=== PATIENT | male | born 1970 | race Caucasian/White ===

== ENCOUNTER 2021-06-19 17:27 | Emergency (ER) | payer OTHER ==
[~2021-06-19] VITALS: Ht 170.2 cm; Wt 104.0 kg
[2021-06-19] MEDS ORDERED: CHLORDIAZEPOXIDE 25MG CAPSULE PO ONE (18:45)
[2021-06-19] MEDS ORDERED: SODIUM CHLORIDE 0.9% 1,000 ML IV ONE (18:45)
[2021-06-19] MEDS ORDERED: CHLORDIAZEPOXIDE 5 MG CAPSULE PO NR (19:44)
[2021-06-19 23:05] LABS: BASOPHILS % 0.6 % (0.0-2.0); EOSINOPHILS % 2.8 % (0.0-5.0); HEMOGLOBIN. 13.3 g/dL (14.0-18.0); LYMPHOCYTES % 38.1 % (20.0-50.0); MEAN CORPUSCULAR VOLUME 90.9 fL (80.0-94.0); MEAN PLATELET VOLUME 6.7 fl (7.4-10.4); MONOCYTES % 11.1 % (2.0-8.0); NEUTROPHILS % 47.4 % (40.0-76.0); PLATELET 159 x1000/uL (130-400); RED BLOOD CELL COUNT 4.29 mill/uL (4.7-6.1); RED CELL DISTRIBUTION WIDTH 14.4 % (11.6-14.6)
[2021-06-19 23:12] LABS: CLARITY URINE CLEAR (CLEAR); COLOR URINE YELLOW (YELLOW); KETONES URINE TRACE (NEGATIVE); LEUKOCYTE ESTERASE URINE NEGATIVE (NEGATIVE); NITRITE URINE NEGATIVE (NEGATIVE); OCCULT BLOOD URINE NEGATIVE (NEGATIVE); PH URINE 5.5 (4.5-8.0); PROTEIN URINE NEGATIVE (NEGATIVE); SPECIFIC GRAVITY URINE 1.017 (1.005-1.030)
[2021-06-19 23:21] LABS: CHLORIDE 105 mEq/L (98-107); ETHANOL BLOOD 105 mg/dL
[2021-06-19] MEDS ORDERED: DIAZEPAM 5 MG/ML 2ML CPJ IV ONE (23:30)
[2021-06-20 00:41] LABS: *AMPHETAMINES SCREEN URINE NEGATIVE (NEGATIVE); *BARBITURATES SCREEN URINE NEGATIVE (NEGATIVE); *BENZODIAZEPINES SCREEN URINE PRESUMTIVE POSITIVE (NEGATIVE); *COCAINE SCREEN URINE NEGATIVE (NEGATIVE); CANNABINOID URINE SCREEN NEGATIVE (NEGATIVE); METHADONE URINE SCREEN NEGATIVE (NEGATIVE); OPIATES URINE SCREEN NEGATIVE (NEGATIVE); PHENCYCLIDINE URINE SCREEN NEGATIVE (NEGATIVE)
[2021-06-20] MEDS ORDERED: DIAZEPAM 5 MG/ML 2ML CPJ IV SCH (02:15)
[2021-06-20] MEDS ORDERED: KETOROLAC 30MG/ML VIAL IV ONE (06:15)
[2021-06-20 06:16] VITALS: BP 128/67
[2021-06-20] MEDS ORDERED: IOHEXOL-300 100 ML BOTTLE ONE (06:37)
[2021-06-24] MEDS ORDERED: CARB-32 MT (11:07)
[2021-06-24] MEDS ORDERED: LORA2TAB95 PO (11:08)
[2021-06-24] MEDS ORDERED: GABA-290 PO (11:08)
== END 2021-06-20 06:30 | disposition left against medical advice (07) ==
LOC: ER 17:27 → CANBEDREQ 06-20 17:24
DX: F10.239 Alcohol dependence with withdrawal, unspecified (principal); Y90.5 Blood alcohol level of 100-119 mg/100 ml; R53.1 Weakness
CPT/HCPCS: 36415; 71045; 74177; 80053; 80305; 80307; 80320; 80329; 81003; 82140; 82962; 83605; 83690; 83880; 84484; 85025; 93005; 96361; 96374; 96375; 99285; J1885; J3360; J7030; Q9967; G0480

== ENCOUNTER 2021-06-21 15:00 | Emergency (ER) | payer OTHER ==
[~2021-06-21] VITALS: Ht 182.9 cm; Wt 91.0 kg
[2021-06-21 15:05] VITALS: BP 137/83
[2021-06-24] MEDS ORDERED: CARB-32 MT (11:07)
[2021-06-24] MEDS ORDERED: LORA2TAB95 PO (11:08)
[2021-06-24] MEDS ORDERED: GABA-290 PO (11:08)
== END 2021-06-21 15:39 | disposition left against medical advice (07) ==
LOC: ER 15:00
DX: Z53.21 Procedure and treatment not carried out due to patient leaving prior to being seen by health care provider (principal)

== ENCOUNTER 2021-11-06 11:04 | Emergency (ER) | payer MEDICAID ==
[~2021-11-06] VITALS: Ht 172.7 cm; Wt 90.0 kg
[~2021-11-06 11:04] MED LIST: CARB-32 MT; GABA-290 PO; LORA2TAB95 PO
[2021-11-06] MEDS ORDERED: SODIUM CHLORIDE 0.9% 1,000 ML IV ONE (12:45)
[2021-11-06 13:26] LABS: CHLORIDE 102 mEq/L (98-107)
[2021-11-06 13:32] LABS: ETHANOL BLOOD 152 mg/dL
[2021-11-06] MEDS ORDERED: CHLORDIAZEPOXIDE 25MG CAPSULE PO ONE (15:00)
[2021-11-06 15:54] VITALS: BP 128/64
== END 2021-11-06 16:11 | disposition home or self-care (01) ==
LOC: ER 11:10
DX: F10.229 Alcohol dependence with intoxication, unspecified (principal); Y90.6 Blood alcohol level of 120-199 mg/100 ml; E11.9 Type 2 diabetes mellitus without complications; I10 Essential (primary) hypertension; Z88.5 Allergy status to narcotic agent
CPT/HCPCS: 36415; 80053; 80320; 82962; 83690; 83880; 84484; 99283; J7030; G0480

== ENCOUNTER 2021-11-09 10:24 | Emergency (ER) | payer MEDICAID ==
[~2021-11-09] VITALS: Ht 185.4 cm; Wt 106.0 kg
[2021-11-09 11:30] LABS: CHLORIDE 107 mEq/L (98-107)
[2021-11-09 11:37] LABS: ETHANOL BLOOD 275 mg/dL
[2021-11-09 12:33] LABS: BASOPHILS % 0.5 % (0.0-2.0); EOSINOPHILS % 0.8 % (0.0-5.0); HEMATOCRIT. 36.5 % (42.0-52.0); HEMOGLOBIN. 12.8 g/dL (14.0-18.0); LYMPHOCYTES % 25.9 % (20.0-50.0); MEAN CORPUSCULAR HEMOGLOBIN 31.1 pg (28.0-32.0); MEAN CORPUSCULAR VOLUME 88.3 fL (80.0-94.0); MEAN PLATELET VOLUME 7.1 fl (7.4-10.4); MONOCYTES % 8.3 % (2.0-8.0); NEUTROPHILS % 64.5 % (40.0-76.0); PLATELET 143 x1000/uL (130-400); RED BLOOD CELL COUNT 4.13 mill/uL (4.7-6.1); RED CELL DISTRIBUTION WIDTH 14.2 % (11.6-14.6)
[2021-11-09 14:08] VITALS: BP 116/72
== END 2021-11-09 14:30 | disposition home or self-care (01) ==
LOC: ER 10:24
DX: F10.229 Alcohol dependence with intoxication, unspecified (principal); E11.9 Type 2 diabetes mellitus without complications; I10 Essential (primary) hypertension; G40.909 Epilepsy, unspecified, not intractable, without status epilepticus; Y90.8 Blood alcohol level of 240 mg/100 ml or more; Z86.11 Personal history of tuberculosis; Z88.5 Allergy status to narcotic agent
CPT/HCPCS: 36415; 80053; 80320; 82962; 85025; 99283; J7040; G0480